=== PATIENT | male | born 1950 | race Caucasian/White ===

== ENCOUNTER 2021-03-22 09:00 | Inpatient (IN) ==
[2021-03-22] MEDS ORDERED: 0.9 % Sodium Chloride 1,000 ML ONE ×2 (09:22→10:41)
[2021-03-22 09:54] LABS: INR 1.1; Prothrombin Time 11.7 Seconds (9.4-12.1)
[2021-03-22] MEDS ORDERED: *HR* Heparin 10,000 UNIT/10 ML VIAL ONE (10:41)
[2021-03-22] MEDS ORDERED: ISOVUE-370 200 ML INFUS..BTL ONE (10:41)
[2021-03-22] MEDS ORDERED: Heparin 1,000 UNITS/500 mL 500 ML ONE (10:41)
[2021-03-22] MEDS ORDERED: Nitroglycerin 1,000 MCG/5 ML VIAL IV ONE (10:41)
[2021-03-22] MEDS ORDERED: *HR* FentaNYL (PF) 100 MCG/2 ML VIAL ONE (10:56)
[2021-03-22] MEDS ORDERED: *HR* Midazolam HCl 2 MG/2 ML VIAL ONE (10:56)
[2021-03-22] MEDS ORDERED: Perflutren Lipid Microsphere 1.3 ML in 0.9 % Sodium Chloride 8.7 ML IVP PRN (14:46)
[2021-03-22 17:00] LABS: Basophils % 0.3 %; Eosinophils # 0.3 K/mcL (0.0-0.6); Eosinophils % 4.1 %; Hematocrit 42.4 % (37.5-50.1); Hemoglobin 14.2 g/dL (12.9-16.9); Immature Granulocytes % 0.3 % (0-4); Lymphocytes % 25.5 %; Mean Corpuscular HGB Conc 33.5 g/dL (31.6-35.5); Mean Corpuscular Hemoglobin 31.7 pg (28.0-33.3); Mean Corpuscular Volume 94.6 fL (83.0-100.0); Mean Platelet Volume 9.3 fL (9.4-12.4); Monocytes # 0.4 K/mcL (0.0-1.3); Monocytes % 5.4 %; Platelet Count 256 K/mcL (140-400); Red Blood Count 4.48 M/mcL (4.19-5.50); Red Cell Distribution Width 12.1 % (11.5-14.5); Segmented Neutrophils % 64.4 %; White Blood Count 7.8 K/mcL (4.3-11.1)
[2021-03-22] MEDS ORDERED: Dextrose Gel 15 GM/37.5 ML TUBE PO PRN ×2 (17:07)
[2021-03-22] MEDS ORDERED: D5% in Water 1,000 ML IVC PRN (17:07)
[2021-03-22] MEDS ORDERED: *HR* Dextrose 50 % in Water (Syg) 50 ML SYRINGE IVP PRN (17:07)
[2021-03-22] MEDS ORDERED: *HR* Heparin 5,000 UNIT/ML VIAL IVP ONE (17:10)
[2021-03-22] MEDS ORDERED: *HR* Heparin 5,000 UNIT/ML VIAL IVP PRN ×2 (17:10)
[2021-03-22 17:14] LABS: Estimated Average Glucose 148 mg/dl; Hemoglobin A1C 6.8 %; INR 1.1; Prothrombin Time 12.8 Seconds (9.4-12.1)
[2021-03-22 17:17] LABS: Activated Partial Thrombo Time 31.2 Seconds (26.0-36.0)
[2021-03-22 17:21] LABS: BUN/Creatinine Ratio 17 (6-26); Blood Urea Nitrogen 14 mg/dL (8-23); Calcium 9.6 mg/dL (8.6-10.3); Carbon Dioxide 25 mEq/L (23-29); Chloride 102 mEq/L (98-107); Chol/HDL Ratio 4.1 (0-4.9); Cholesterol 130 mg/dL (< 200); Glucose 132 mg/dL (70-105); HDL Cholesterol 32 mg/dL (40-59); LDL Cholesterol,Calculated 71 mg/dL (< 100); Osmolality,Calculated 286 (280-300); Potassium 3.7 mEq/L (3.5-5.1); Sodium 137 mEq/L (136-145); Triglycerides 133 mg/dL (< 150); eGFR For African Americans > 60 (> 60); eGFR For Non-African Americans > 60 (> 60)
[2021-03-22 17:22] LABS: Heparin anti-factor XA UFH < 0.04 IU/mL (0.30-0.70)
[2021-03-22] MEDS: Insulin LISPRO 300 UNITS/3 ML VIAL SUBQ SCH ×2 (17:27→20:24)
[2021-03-22] MEDS: Heparin 25,000 UNIT/250 ML 25,000 UNIT/250 ML IV.SOLN IVC SCH (18:35)
[2021-03-22] MEDS ORDERED: Acetaminophen 325 MG TABLET PO ONE (21:29)
[2021-03-23] MEDS: Insulin LISPRO 300 UNITS/3 ML VIAL SUBQ SCH ×4 (08:48→21:17)
[2021-03-23] MEDS ORDERED: Nitroglycerin 0.4 MG TAB.SUBL SL PRN (16:30)
[2021-03-23] MEDS: Heparin 25,000 UNIT/250 ML 25,000 UNIT/250 ML IV.SOLN IVC SCH (17:05)
[2021-03-24] MEDS: Insulin LISPRO 300 UNITS/3 ML VIAL SUBQ SCH ×4 (08:55→22:25)
[2021-03-24] MEDS ORDERED: Acetaminophen 325 MG TABLET PO PRN (15:49)
[2021-03-24] MEDS: Heparin 25,000 UNIT/250 ML 25,000 UNIT/250 ML IV.SOLN IVC SCH (15:58)
[2021-03-24] MEDS: Chlorhexidine Rinse 15 ML MOUTHWASH MM SCH (20:17)
[2021-03-25 01:23] LABS: Adenovirus Not Detected (Not Detect); Bordetella Pertussis Not Detected (Not Detect); Chlamydophila pneumoniae Not Detected (Not Detect); Coronavirus 229E Not Detected (Not Detect); Coronavirus HKU1 Not Detected (Not Detect); Coronavirus NL63 Not Detected (Not Detect); Coronavirus OC43 Not Detected (Not Detect); Human Metapneumovirus Not Detected (Not Detect); Human Rhinovirus/Enterovirus Not Detected (Not Detect); Influenza A Subtype 2009 H1 Not Detected (Not Detect); Influenza B Not Detected (Not Detect); Mycoplasma pneumoniae Not Detected (Not Detect); Parainfluenza Virus 1 Not Detected (Not Detect); Parainfluenza Virus 2 Not Detected (Not Detect); Parainfluenza Virus 3 Not Detected (Not Detect); Parainfluenza Virus 4 Not Detected (Not Detect); Respiratory Syncytial Virus Not Detected (Not Detect); SARS-CoV-2 Not Detected (Not Detect)
[2021-03-25 05:34] LABS: Basophils # 0.1 K/mcL (0.0-0.2); Basophils % 0.5 %; Eosinophils # 0.4 K/mcL (0.0-0.6); Eosinophils % 3.6 %; Hematocrit 39.4 % (37.5-50.1); Hemoglobin 13.2 g/dL (12.9-16.9); Immature Granulocytes % 0.2 % (0-4); Lymphocytes # 3.8 K/mcL (0.6-4.6); Lymphocytes % 39.6 %; Mean Corpuscular HGB Conc 33.5 g/dL (31.6-35.5); Mean Corpuscular Hemoglobin 31.7 pg (28.0-33.3); Mean Corpuscular Volume 94.7 fL (83.0-100.0); Mean Platelet Volume 9.4 fL (9.4-12.4); Monocytes # 0.7 K/mcL (0.0-1.3); Monocytes % 7.6 %; Neutrophils # 4.7 K/mcL (1.6-8.9); Platelet Count 234 K/mcL (140-400); Red Blood Count 4.16 M/mcL (4.19-5.50); Red Cell Distribution Width 12.1 % (11.5-14.5); Segmented Neutrophils % 48.5 %; White Blood Count 9.6 K/mcL (4.3-11.1)
[2021-03-25 05:52] LABS: BUN/Creatinine Ratio 17 (6-26); Blood Urea Nitrogen 16 mg/dL (8-23); Calcium 8.9 mg/dL (8.6-10.3); Carbon Dioxide 24 mEq/L (23-29); Chloride 109 mEq/L (98-107); Glucose 112 mg/dL (70-105); Magnesium 2.1 mg/dL (1.6-2.6); Osmolality,Calculated 294 (280-300); Potassium 3.9 mEq/L (3.5-5.1); Sodium 141 mEq/L (136-145); eGFR For African Americans > 60 (> 60); eGFR For Non-African Americans > 60 (> 60)
[2021-03-25] MEDS ORDERED: Aspirin 81 MG TAB.CHEW PO ONE (06:00)
[2021-03-25] MEDS ORDERED: NiCARdipine 2.5 MG/10 ML Syringe IVPB ONE (06:20)
[2021-03-25] MEDS ORDERED: *HR* FentaNYL (PF) 1,000 MCG/20 ML VIAL ONE (06:27)
[2021-03-25] MEDS ORDERED: *HR* Midazolam HCl 5 MG/5 ML VIAL IVP ONE (06:27)
[2021-03-25] MEDS ORDERED: *HR* Rocuronium Bromide 50 MG/5 ML VIAL ONE (06:29)
[2021-03-25] MEDS ORDERED: *HR* Etomidate 20 MG/10 ML AMPUL IVP ONE (06:30)
[2021-03-25] MEDS ORDERED: Famotidine 20 MG/2 ML VIAL ONE (06:30)
[2021-03-25] MEDS ORDERED: Papaverine 60 MG/2 ML VIAL IVP ONE (06:32)
[2021-03-25] MEDS: Chlorhexidine Rinse 15 ML MOUTHWASH MM SCH ×2 (06:55→21:40)
[2021-03-25] MEDS ORDERED: CeFAZolin Syr 2,000MG/20 ML 2,000 MG/20 ML SYRINGE IVPB ONE (07:00)
[2021-03-25] MEDS ORDERED: Heparin 15,000 UNIT in 0.9 % Sodium Chloride 500 ML IV ONE (07:45)
[2021-03-25] MEDS ORDERED: Dextrose 50 % in Water (Vial) 30 ML, Sodium Bicarbonate 20 MEQ, Potassium Chloride 15 M... TH ONE (07:45)
[2021-03-25] MEDS ORDERED: Norepinephrine 4 MG in 0.9 % Sodium Chloride 250 ML IVC PRN (07:45)
[2021-03-25] MEDS ORDERED: Dextrose 50 % in Water (Vial) 30 ML, Sodium Bicarbonate 20 MEQ, Lidocaine 1% 5 ML, Insu... TH ONE ×3 (07:45)
[2021-03-25] MEDS ORDERED: Hydrocortisone Sodium Succ 100 MG/2 ML VIAL ONE (08:22)
[2021-03-25 08:37] LABS: ABG Base Excess -2 mEq/L (-2 to 3); ABG Chloride 109 mEq/L (98-107); ABG Glucose 136 mg/dL (60-95); ABG HCO3 23 mEq/L (21-27); ABG Oxygen Saturation 100 % (95-98); ABG PCO2 40 mmHg (35-45); ABG PH 7.37 pH Units (7.32-7.45); ABG PO2 188 mmHg (85-104); ABG TCO2 24 mEq/L (20-26)
[2021-03-25] MEDS ORDERED: Tranexamic Acid 1,000 MG/10 ML VIAL ONE (09:56)
[2021-03-25 10:13] LABS: ABG Base Excess -3 mEq/L (-2 to 3); ABG Chloride 101 mEq/L (98-107); ABG Glucose 275 mg/dL (60-95); ABG HCO3 23 mEq/L (21-27); ABG Ionized Calcium 0.97 mmol/L (1.15-1.35); ABG Oxygen Saturation 98 % (95-98); ABG PCO2 47 mmHg (35-45); ABG PO2 110 mmHg (85-104); ABG TCO2 25 mEq/L (20-26)
[2021-03-25 10:44] LABS: ABG Base Excess 1 mEq/L (-2 to 3); ABG Chloride 103 mEq/L (98-107); ABG Glucose 218 mg/dL (60-95); ABG HCO3 27 mEq/L (21-27); ABG Ionized Calcium 1.33 mmol/L (1.15-1.35); ABG Oxygen Saturation 100 % (95-98); ABG PCO2 48 mmHg (35-45); ABG PH 7.35 pH Units (7.32-7.45); ABG PO2 542 mmHg (85-104); ABG TCO2 28 mEq/L (20-26)
[2021-03-25] MEDS ORDERED: Albumin Human 5% 12.5 GM/250 ML IV.SOLN ONE (10:58)
[2021-03-25 11:13] LABS: ABG Base Excess -2 mEq/L (-2 to 3); ABG Chloride 105 mEq/L (98-107); ABG Glucose 226 mg/dL (60-95); ABG HCO3 23 mEq/L (21-27); ABG Ionized Calcium 1.49 mmol/L (1.15-1.35); ABG Oxygen Saturation 95 % (95-98); ABG PCO2 42 mmHg (35-45); ABG PH 7.36 pH Units (7.32-7.45); ABG PO2 81 mmHg (85-104); ABG TCO2 25 mEq/L (20-26)
[2021-03-25] MEDS ORDERED: *HR* Metoprolol 5 MG/5 ML VIAL IVP ONE (11:13)
[2021-03-25] MEDS ORDERED: Naloxone 0.4 MG/ML INJ IVP PRN (12:08)
[2021-03-25] MEDS ORDERED: Insulin Regular, Human 100 UNIT/ML IV PRN (12:08)
[2021-03-25] MEDS ORDERED: Sennosides 8.6 MG TABLET PO PRN (12:08)
[2021-03-25] MEDS ORDERED: Ondansetron 4 MG/2 ML VIAL IVP PRN (12:08)
[2021-03-25] MEDS ORDERED: Acetaminophen 325 MG TABLET PO PRN (12:08)
[2021-03-25] MEDS ORDERED: *HR* Dextrose 50 % in Water (Syg) 50 ML SYRINGE IVP PRN (12:08)
[2021-03-25] MEDS ORDERED: *HR* Promethazine 25 MG/ML VIAL IM PRN (12:08)
[2021-03-25] MEDS ORDERED: Potassium Chloride 40 MEQ/200 ML BAG IVPB PRN (12:08)
[2021-03-25 12:12] LABS: ABG Base Excess -2 mEq/L (-2 to 3); ABG HCO3 24 mEq/L (21-27); ABG Oxygen Saturation 99 % (95-98); ABG PCO2 45 mmHg (35-45); ABG PH 7.34 pH Units (7.32-7.45); ABG PO2 142 mmHg (85-104); ABG TCO2 26 mEq/L (20-26); Blood Gas Modality ASSIST CONTROL; Blood Gas VT 500 cc
[2021-03-25] MEDS ORDERED: niCARdipine 20 MG/200 ML MLS IVC ONE (12:20)
[2021-03-25] MEDS: niCARdipine 20 MG/200 ML MLS IVC SCH ×3 (12:25→20:02)
[2021-03-25 12:27] LABS: Basophils % 0.2 %; Eosinophils # 0.1 K/mcL (0.0-0.6); Eosinophils % 0.7 %; Hematocrit 29.5 % (37.5-50.1); Immature Granulocytes % 0.6 % (0-4); Lymphocytes # 1.3 K/mcL (0.6-4.6); Lymphocytes % 7.5 %; Mean Corpuscular HGB Conc 34.6 g/dL (31.6-35.5); Mean Corpuscular Hemoglobin 32.9 pg (28.0-33.3); Mean Corpuscular Volume 95.2 fL (83.0-100.0); Mean Platelet Volume 9.2 fL (9.4-12.4); Monocytes # 0.9 K/mcL (0.0-1.3); Monocytes % 5.3 %; Neutrophils # 14.2 K/mcL (1.6-8.9); Platelet Count 139 K/mcL (140-400); Red Cell Distribution Width 12.3 % (11.5-14.5); Segmented Neutrophils % 85.7 %
[2021-03-25 12:33] LABS: Hemoglobin 10.2 g/dL (12.9-16.9)
[2021-03-25 12:34] LABS: White Blood Count 16.6 K/mcL (4.3-11.1)
[2021-03-25 12:39] LABS: INR 1.4; Prothrombin Time 15.8 Seconds (9.4-12.1)
[2021-03-25 12:41] LABS: BUN/Creatinine Ratio 19 (6-26); Blood Urea Nitrogen 13 mg/dL (8-23); Calcium 7.9 mg/dL (8.6-10.3); Carbon Dioxide 23 mEq/L (23-29); Chloride 111 mEq/L (98-107); Glucose 173 mg/dL (70-105); Magnesium 2.2 mg/dL (1.6-2.6); Osmolality,Calculated 292 (280-300); Potassium 4.1 mEq/L (3.5-5.1); Sodium 139 mEq/L (136-145); eGFR For African Americans > 60 (> 60); eGFR For Non-African Americans > 60 (> 60)
[2021-03-25 12:42] LABS: Activated Partial Thrombo Time 26.4 Seconds (26.0-36.0)
[2021-03-25] MEDS: *HR* FentaNYL (PF) 100 MCG/2 ML VIAL IVP PRN ×3 (13:40→21:38)
[2021-03-25] MEDS: 0.9 % Sodium Chloride 1,000 ML IVC SCH (13:49)
[2021-03-25] MEDS: *HR* OxyCODONE/APAP 5/325 TABLET PO PRN ×3 (14:38→22:57)
[2021-03-25 16:00] LABS: ABG Base Excess -1 mEq/L (-2 to 3); ABG HCO3 24 mEq/L (21-27); ABG Oxygen Saturation 96 % (95-98); ABG PCO2 42 mmHg (35-45); ABG PH 7.37 pH Units (7.32-7.45); ABG PO2 85 mmHg (85-104); ABG TCO2 25 mEq/L (20-26)
[2021-03-25] MEDS: CeFAZolin 2 GM/120 ML BAG IVPB SCH ×2 (16:07→22:58)
[2021-03-25] MEDS: Albumin Human 5% 12.5 GM/250 ML IV.SOLN IVPB PRN ×2 (16:20→17:51)
[2021-03-25] MEDS ORDERED: Heparin 1,000 UNITS/500 mL IV.SOLN IR ONE (17:54)
[2021-03-25] MEDS ORDERED: Mannitol 25% vial 12.5 GM/50 ML VIAL IVPB ONE (17:54)
[2021-03-25] MEDS ORDERED: Tranexamic Acid 1,000 MG/10 ML VIAL IR ONE (17:54)
[2021-03-25] MEDS ORDERED: *HR* Heparin 10,000 UNIT/10 ML VIAL IR ONE (17:54)
[2021-03-25] MEDS ORDERED: Albumin Human 25% 25 GM/100 ML IV.SOLN IVPB ONE (17:54)
[2021-03-25] MEDS ORDERED: *HR* Phenylephrine 10 MG/ML VIAL IVC ONE (17:54)
[2021-03-25] MEDS ORDERED: D5% in Water 250 ML IV BAG IV ONE (17:54)
[2021-03-25] MEDS ORDERED: *HR* Magnesium Sulfate 2 GM/50 ML PIGGYBACK IVPB ONE (17:54)
[2021-03-25] MEDS ORDERED: Lidocaine 2% Syringe 100 MG/5 ML IVP ONE (17:54)
[2021-03-25] MEDS ORDERED: Amiodarone Premix 150 MG/100 ML BAG IVPB ONE (18:02)
[2021-03-25] MEDS ORDERED: Amiodarone Premix 360 MG/200 ML BAG IVC ONE (18:02)
[2021-03-25] MEDS: Norepinephrine 4 MG/254 ML IV.SOLN IVC SCH ×2 (18:36→20:02)
[2021-03-26] MEDS ORDERED: Amiodarone Premix 360 MG/200 ML BAG IVC SCH (00:02)
[2021-03-26] MEDS: *HR* FentaNYL (PF) 100 MCG/2 ML VIAL IVP PRN ×4 (00:04→06:18)
[2021-03-26] MEDS: niCARdipine 20 MG/200 ML MLS IVC SCH ×3 (01:09→06:20)
[2021-03-26] MEDS: 0.9 % Sodium Chloride 1,000 ML IVC SCH (02:28)
[2021-03-26] MEDS: Norepinephrine 4 MG/254 ML IV.SOLN IVC SCH (02:28)
[2021-03-26] MEDS: *HR* OxyCODONE/APAP 5/325 TABLET PO PRN ×2 (03:14→08:15)
[2021-03-26 03:56] LABS: BUN/Creatinine Ratio 17 (6-26); Blood Urea Nitrogen 13 mg/dL (8-23); Calcium 7.8 mg/dL (8.6-10.3); Carbon Dioxide 24 mEq/L (23-29); Chloride 110 mEq/L (98-107); Glucose 108 mg/dL (70-105); Osmolality,Calculated 291 (280-300); Potassium 3.6 mEq/L (3.5-5.1); Sodium 140 mEq/L (136-145); eGFR For African Americans > 60 (> 60); eGFR For Non-African Americans > 60 (> 60)
[2021-03-26 04:12] LABS: Basophils % 0.1 %; Hematocrit 28.4 % (37.5-50.1); Hemoglobin 9.8 g/dL (12.9-16.9); Immature Granulocytes % 0.3 % (0-4); Lymphocytes # 1.4 K/mcL (0.6-4.6); Lymphocytes % 11.9 %; Mean Corpuscular HGB Conc 34.5 g/dL (31.6-35.5); Mean Corpuscular Volume 95.6 fL (83.0-100.0); Mean Platelet Volume 9.8 fL (9.4-12.4); Monocytes # 0.9 K/mcL (0.0-1.3); Monocytes % 7.7 %; Neutrophils # 9.4 K/mcL (1.6-8.9); Platelet Count 167 K/mcL (140-400); Red Blood Count 2.97 M/mcL (4.19-5.50); Red Cell Distribution Width 12.7 % (11.5-14.5); White Blood Count 11.7 K/mcL (4.3-11.1)
[2021-03-26] MEDS: Chlorhexidine Rinse 15 ML MOUTHWASH MM SCH ×2 (08:41→20:42)
[2021-03-26] MEDS ORDERED: Aspirin Enteric Coated 81 MG Tablet PO SCH (09:00)
[2021-03-26] MEDS ORDERED: Pantoprazole 40 MG VIAL IVP SCH (09:00)
[2021-03-26] MEDS ORDERED: *HR* OxyCODONE/APAP 10/325 TABLET PO PRN (09:18)
[2021-03-26] MEDS ORDERED: lisinopriL 10 MG TABLET PO SCH (09:30)
[2021-03-26] MEDS ORDERED: Sennosides 8.6 MG TABLET PO PRN (10:18)
[2021-03-26] MEDS ORDERED: D5% in Water 1,000 ML IVC PRN (10:18)
[2021-03-26] MEDS ORDERED: Ondansetron 4 MG/2 ML VIAL IVP PRN (10:18)
[2021-03-26] MEDS ORDERED: *HR* Promethazine 25 MG/ML VIAL IM PRN (10:18)
[2021-03-26] MEDS ORDERED: Dextrose Gel 15 GM/37.5 ML TUBE PO PRN ×2 (10:18)
[2021-03-26] MEDS ORDERED: Acetaminophen 325 MG TABLET PO PRN (10:18)
[2021-03-26] MEDS ORDERED: Naloxone 0.4 MG/ML INJ IVP PRN (10:18)
[2021-03-26] MEDS ORDERED: *HR* Dextrose 50 % in Water (Syg) 50 ML SYRINGE IVP PRN (10:18)
[2021-03-26] MEDS: Insulin LISPRO 300 UNITS/3 ML VIAL SUBQ SCH ×3 (11:29→20:48)
[2021-03-26] MEDS ORDERED: Ketorolac 30 MG/ML VIAL IVP SCH (12:00)
[2021-03-26] MEDS: *HR* OxyCODONE/APAP 10/325 TABLET PO PRN ×2 (12:17→16:31)
[2021-03-26] MEDS: Ketorolac 30 MG/ML VIAL IVP SCH ×2 (12:17→18:57)
[2021-03-26] MEDS: Amiodarone Premix 360 MG/200 ML BAG IVC SCH (12:55)
[2021-03-26] MEDS: *HR* Heparin 5,000 UNIT/ML VIAL SQ SCH (18:58)
[2021-03-27] MEDS: Ketorolac 30 MG/ML VIAL IVP SCH ×2 (00:41→05:21)
[2021-03-27] MEDS: Amiodarone Premix 360 MG/200 ML BAG IVC SCH ×2 (00:41→01:27)
[2021-03-27] MEDS: *HR* Heparin 5,000 UNIT/ML VIAL SQ SCH ×2 (05:21→17:29)
[2021-03-27 06:26] LABS: Basophils % 0.2 %; Eosinophils % 0.2 %; Hematocrit 28.8 % (37.5-50.1); Hemoglobin 9.4 g/dL (12.9-16.9); Immature Granulocytes % 0.3 % (0-4); Lymphocytes # 1.6 K/mcL (0.6-4.6); Lymphocytes % 13.5 %; Mean Corpuscular HGB Conc 32.6 g/dL (31.6-35.5); Mean Corpuscular Hemoglobin 32.3 pg (28.0-33.3); Mean Platelet Volume 10.2 fL (9.4-12.4); Monocytes # 0.8 K/mcL (0.0-1.3); Monocytes % 6.6 %; Neutrophils # 9.2 K/mcL (1.6-8.9); Platelet Count 128 K/mcL (140-400); Red Blood Count 2.91 M/mcL (4.19-5.50); Red Cell Distribution Width 13.2 % (11.5-14.5); Segmented Neutrophils % 79.2 %; White Blood Count 11.6 K/mcL (4.3-11.1)
[2021-03-27] MEDS: Insulin LISPRO 300 UNITS/3 ML VIAL SUBQ SCH ×4 (08:07→21:27)
[2021-03-27 08:18] LABS: BUN/Creatinine Ratio 20 (6-26); Blood Urea Nitrogen 26 mg/dL (8-23); Carbon Dioxide 24 mEq/L (23-29); Chloride 107 mEq/L (98-107); Glucose 125 mg/dL (70-105); Osmolality,Calculated 292 (280-300); Potassium 3.8 mEq/L (3.5-5.1); Sodium 138 mEq/L (136-145); eGFR For African Americans > 60 (> 60); eGFR For Non-African Americans 53 (> 60)
[2021-03-27] MEDS: Aspirin Enteric Coated 81 MG Tablet PO SCH (08:30)
[2021-03-27] MEDS: Chlorhexidine Rinse 15 ML MOUTHWASH MM SCH ×2 (08:30→21:26)
[2021-03-27] MEDS ORDERED: lisinopriL 10 MG TABLET PO SCH (09:00)
[2021-03-27] MEDS ORDERED: 0.9 % Sodium Chloride 500 ML IV ONE (09:18)
[2021-03-27] MEDS: *HR* Amiodarone 200 MG TABLET PO SCH ×2 (09:39→21:26)
[2021-03-27] MEDS: *HR* OxyCODONE/APAP 10/325 TABLET PO PRN ×2 (13:54→19:44)
[2021-03-28 04:41] LABS: Basophils % 0.2 %; Eosinophils # 0.1 K/mcL (0.0-0.6); Eosinophils % 0.6 %; Hematocrit 27.5 % (37.5-50.1); Hemoglobin 8.7 g/dL (12.9-16.9); Immature Granulocytes % 0.2 % (0-4); Lymphocytes # 1.2 K/mcL (0.6-4.6); Mean Corpuscular HGB Conc 31.6 g/dL (31.6-35.5); Mean Corpuscular Hemoglobin 31.1 pg (28.0-33.3); Mean Corpuscular Volume 98.2 fL (83.0-100.0); Mean Platelet Volume 9.3 fL (9.4-12.4); Monocytes # 0.5 K/mcL (0.0-1.3); Monocytes % 5.3 %; Platelet Count 151 K/mcL (140-400); Red Cell Distribution Width 13.2 % (11.5-14.5); Segmented Neutrophils % 81.7 %; White Blood Count 9.8 K/mcL (4.3-11.1)
[2021-03-28 04:55] LABS: BUN/Creatinine Ratio 33 (6-26); Blood Urea Nitrogen 27 mg/dL (8-23); Calcium 8.3 mg/dL (8.6-10.3); Carbon Dioxide 23 mEq/L (23-29); Chloride 108 mEq/L (98-107); Glucose 139 mg/dL (70-105); Osmolality,Calculated 293 (280-300); Potassium 3.7 mEq/L (3.5-5.1); Sodium 138 mEq/L (136-145); eGFR For African Americans > 60 (> 60); eGFR For Non-African Americans > 60 (> 60)
[2021-03-28] MEDS: Insulin LISPRO 300 UNITS/3 ML VIAL SUBQ SCH ×5 (05:34→19:55)
[2021-03-28] MEDS: *HR* Heparin 5,000 UNIT/ML VIAL SQ SCH ×2 (06:02→19:27)
[2021-03-28] MEDS: *HR* Amiodarone 200 MG TABLET PO SCH ×2 (09:25→19:53)
[2021-03-28] MEDS: Aspirin Enteric Coated 81 MG Tablet PO SCH (09:25)
[2021-03-28] MEDS: Chlorhexidine Rinse 15 ML MOUTHWASH MM SCH ×2 (09:26→19:55)
[2021-03-28] MEDS: *HR* OxyCODONE/APAP 10/325 TABLET PO PRN (19:54)
[2021-03-29] MEDS: *HR* Heparin 5,000 UNIT/ML VIAL SQ SCH (06:04)
[2021-03-29] MEDS: Insulin LISPRO 300 UNITS/3 ML VIAL SUBQ SCH ×4 (07:20→21:14)
[2021-03-29] MEDS: Aspirin Enteric Coated 81 MG Tablet PO SCH (08:50)
[2021-03-29] MEDS: Chlorhexidine Rinse 15 ML MOUTHWASH MM SCH ×2 (08:51→21:12)
[2021-03-29] MEDS: *HR* Amiodarone 200 MG TABLET PO SCH ×2 (08:51→21:13)
[2021-03-29] MEDS ORDERED: *HR* Amiodarone 200 MG TABLET PO STA ×2 (09:01→09:04)
[2021-03-29] MEDS: *HR* OxyCODONE/APAP 10/325 TABLET PO PRN ×2 (12:40→21:13)
[2021-03-29] MEDS: Apixaban 5 MG TABLET PO SCH (21:12)
[2021-03-30 02:53] LABS: Basophils % 0.3 %; Eosinophils # 0.5 K/mcL (0.0-0.6); Hematocrit 26.2 % (37.5-50.1); Hemoglobin 8.4 g/dL (12.9-16.9); Immature Granulocytes % 0.3 % (0-4); Lymphocytes # 2.4 K/mcL (0.6-4.6); Mean Corpuscular HGB Conc 32.1 g/dL (31.6-35.5); Mean Corpuscular Hemoglobin 31.7 pg (28.0-33.3); Mean Corpuscular Volume 98.9 fL (83.0-100.0); Mean Platelet Volume 9.6 fL (9.4-12.4); Monocytes # 0.6 K/mcL (0.0-1.3); Monocytes % 6.2 %; Neutrophils # 5.5 K/mcL (1.6-8.9); Platelet Count 244 K/mcL (140-400); Red Blood Count 2.65 M/mcL (4.19-5.50); Red Cell Distribution Width 13.2 % (11.5-14.5); Segmented Neutrophils % 61.2 %; White Blood Count 8.9 K/mcL (4.3-11.1)
[2021-03-30 02:55] LABS: BUN/Creatinine Ratio 29 (6-26); Blood Urea Nitrogen 24 mg/dL (8-23); Calcium 8.2 mg/dL (8.6-10.3); Carbon Dioxide 25 mEq/L (23-29); Chloride 110 mEq/L (98-107); Glucose 106 mg/dL (70-105); Osmolality,Calculated 296 (280-300); Potassium 3.6 mEq/L (3.5-5.1); Sodium 141 mEq/L (136-145); eGFR For African Americans > 60 (> 60); eGFR For Non-African Americans > 60 (> 60)
[2021-03-30] MEDS: *HR* OxyCODONE/APAP 10/325 TABLET PO PRN ×2 (05:39→19:33)
[2021-03-30] MEDS: Insulin LISPRO 300 UNITS/3 ML VIAL SUBQ SCH ×4 (09:23→19:37)
[2021-03-30] MEDS: Aspirin Enteric Coated 81 MG Tablet PO SCH (09:27)
[2021-03-30] MEDS: Apixaban 5 MG TABLET PO SCH ×2 (09:28→19:34)
[2021-03-30] MEDS: *HR* Amiodarone 200 MG TABLET PO SCH ×2 (09:29→19:34)
[2021-03-30] MEDS: Chlorhexidine Rinse 15 ML MOUTHWASH MM SCH ×2 (09:41→19:34)
[2021-03-31] MEDS: *HR* OxyCODONE/APAP 10/325 TABLET PO PRN ×2 (02:15→09:31)
[2021-03-31 07:05] VITALS: BP 148/65; PULSE 75; TEMP 98.4
[2021-03-31 07:39] VITALS: O2SAT 95
[2021-03-31] MEDS: Insulin LISPRO 300 UNITS/3 ML VIAL SUBQ SCH (08:04)
[2021-03-31] MEDS: *HR* Amiodarone 200 MG TABLET PO SCH (09:27)
[2021-03-31] MEDS: Apixaban 5 MG TABLET PO SCH (09:28)
[2021-03-31] MEDS: Chlorhexidine Rinse 15 ML MOUTHWASH MM SCH (09:29)
[2021-03-31] MEDS: Aspirin Enteric Coated 81 MG Tablet PO SCH (09:29)
== END 2021-03-31 11:20 | disposition home or self-care (01) | DRG 234 ==
LOC: INVDIALAB 09:00 → 3BNU 12:25 → ICNU 03-25 09:19 → 2NNU 03-26 20:03
PROVIDERS: ADMIT Internal Medicine Interventional Cardiology; ATTEND Thoracic Surgery (Cardiothoracic Vascular Surgery)